=== PATIENT | male | born 1975 | race Caucasian/White ===

== ENCOUNTER 2019-09-18 15:44 | Emergency (ER) | payer SELFPAY ==
--- NOTE | 2019-09-18 16:45 | EDM.PDOC ---
ED HPI GENERAL MEDICAL PROBLEM - General Chief Complaint: Lower Extremity Injury/Pain Stated Complaint: MEDICAL CLEARANCE Time Seen by Provider: 09/18/19 16:21 Source of Information: Reports: Patient History Limitations: Reports: No Limitations - History of Present Illness INITIAL COMMENTS - FREE TEXT/NARRATIVE: HISTORY AND PHYSICAL: History of present illness: Patient is a 43-year-old male who presents to the emergency room with complaints of discoloration to his bilateral great toes. He has brought to the emergency room by law enforcement for medical clearance. 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 He states he does have good sensation although it is painful if he stops the area when walking. Denies any history of diabetes and denies any injury. States he is otherwise healthy and has no health concerns. Patient denies any fever, chills, headache, change in vision, syncope or near syncope. Denies any chest pain, back pain, shortness of breath or cough. Denies any GI or symptoms. Patient has been eating and drinking appropriately. Patient is Sami-speaking and [employer] translation services was used. Review of systems: As per history of present illness and below otherwise all systems reviewed and negative. Past medical history: As per history of present illness and as reviewed below otherwise noncontributory. Surgical history: As per history of present illness and as reviewed below otherwise noncontributory. Social history: See social history for further information Family history: As per history of present illness and as reviewed below otherwise noncontributory. Physical exam: General: Well-developed and well-nourished 43-year-old male. Alert and appropriate for age. Nontoxic-appearing and in no acute distress. HEENT: Atraumatic, normocephalic, pupils equal and reactive bilaterally, negative for conjunctival pallor or scleral icterus, mucous membranes moist, TMs normal bilaterally, throat clear, neck supple, nontender, trachea midline. No drooling or trismus noted. No meningeal signs. No hot potato voice noted. Lungs: Clear to auscultation, breath sounds equal bilaterally, chest nontender. Heart: S1S2, regular rate and rhythm without overt murmur Abdomen: Soft, nondistended, nontender. Skin: Discoloration noted to the solar surface of the great toe bilaterally. On the left great toe he does have some mild erythema to the inside of the webspace. Nonfluctuant and nonindurated. Remaining skin is intact, warm, dry. No lesions or rashes noted. Extremities: See skin for details, moves all extremities per self without difficulty or deficits, negative for cords or calf pain. + CMS bilaterally. Cap refill less than 3 seconds of toes bilaterally. Neurovascular unremarkable. Neuro: Awake, alert, oriented. Cranial nerves II through XII unremarkable. Cerebellum unremarkable. Motor and sensory unremarkable throughout. Exam nonfocal. Notes: [employer] was used to evaluated/speak with patient. We discussed the importance of following up with podiatry. Due to the small area of redness I will place him on a short course of antibiotic to rule out cellulitis. He states he is otherwise asymptomatic. He states if law enforcement had not brought him to the emergency room he would not had sought medical attention for his toes. Supportive care measures were reviewed and discussed. Voices understanding and is agreeable to plan of care. Denies any further questions or concerns at this time. 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 Please wash the areas twice daily with mild soap and water. Otherwise keep the skin clean and dry. Keep dry cotton socks on to avoid moisture. 2. Tylenol and/or ibuprofen as needed for pain. Tramadol for moderate to severe pain. 3. As we discussed please follow-up with podiatry. Return to the ED as needed and as discussed. Definitive disposition and diagnosis as appropriate pending reevaluation and review of above. bilateral feet Pain Score (Numeric/FACES): 10 - Related Data Allergies Allergy/AdvReac Type Severity Reaction Status Date / Time No Known Allergies Allergy Verified 09/18/19 15:51 Home Meds: Home Meds . [No Known Home Meds] 09/18/19 [History] Past Medical History - Past Health History Medical/Surgical History: Denies Medical/Surgical History Social & Family History - Family History Family Medical History: Noncontributory - Tobacco Use Smoking Status *Q: Current Every Day Smoker Years of Tobacco use: 2 Packs/Tins Daily: 0.2 - Recreational Drug Use Recreational Drug Use: No Review of Systems - Review of Systems Review Of Systems: Comprehensive ROS is negative, except as noted in HPI. ED EXAM, GENERAL - Physical Exam Exam: See Below (See dictation) Course - Vital Signs Last Recorded V/S: Last Vital Signs Temp 98.2 F 09/18/19 15:49 Pulse 90 09/18/19 15:49 Resp 20 09/18/19 15:49 BP 165/101 H 09/18/19 15:49 Pulse Ox 100 09/18/19 15:49 - Orders/Labs/Meds Orders: Active Orders 24 hr Category Date Time Status Blood Glucose Check, Bedside [RC] ONETIME Care 09/18/19 16:41 Active Departure - Departure Time of Disposition: 16:44 Disposition: Home, Self-Care 01 Clinical Impression: Encounter for medical screening examination, Frostbite of both great toes, Localized infection of skin - Discharge Information Referrals: PCP,Unobtain [Primary Care Provider] - Forms: ED Department Discharge Additional Instructions: The following information is given to patients seen in the emergency department who are being discharged to home. This information is to outline your options for follow-up care. We provide all patients seen in our emergency department with a follow-up referral. The need for follow-up, as well as the timing and circumstances, are variable depending upon the specifics of your emergency department visit. If you don't have a primary care physician on staff, we will provide you with a referral. We always advise you to contact your personal physician following an emergency department visit to inform them of the circumstance of the visit and for follow-up with them and/or the need for any referrals to a consulting specialist. The emergency department will also refer you to a specialist when appropriate. This referral assures that you have the opportunity for follow-up care with a specialist. All of these measure are taken in an effort to provide you with optimal care, which includes your follow-up. Under all circumstances we always encourage you to contact your private physician who remains a resource for coordinating your care. When calling for follow-up care, please make the office aware that this follow-up is from your recent emergency room visit. If for any reason you are refused follow-up, please contact the [facility] Emergency Department at and asked to speak to the emergency department charge nurse. [facility] [address] [place] [address] [facility] [address] [place] [id number] 1. We wash the areas twice daily with mild soap and water. Otherwise keep the skin clean and dry. Keep dry cotton socks on to avoid moisture. 2. Tylenol and/or ibuprofen as needed for pain. Tramadol for moderate to severe pain. 3. As we discussed please follow-up with podiatry. Return to the ED as needed and as discussed. Sepsis Event Note - Evaluation Sepsis Screening Result: No Definite Risk - Focused Exam Vital Signs: Vital Signs Temp Pulse Resp BP Pulse Ox 09/18/19 15:49 98.2 F 90 20 165/101 H 100 Date Exam was Performed: 09/18/19 Time Exam was Performed: 16:49 - My Orders Last 24 Hours: My Active Orders 09/18/19 16:41 Blood Glucose Check, Bedside [RC] ONETIME - Assessment/Plan Last 24 Hours: My Active Orders 09/18/19 16:41 Blood Glucose Check, Bedside [RC] ONETIME
== END 2019-09-18 16:57 ==
LOC: MW.ED 15:44
DX: T33.832A Superficial frostbite of left toe(s), initial encounter (principal); T33.831A Superficial frostbite of right toe(s), initial encounter; L08.9 Local infection of the skin and subcutaneous tissue, unspecified; F17.210 Nicotine dependence, cigarettes, uncomplicated; X31.XXXA Exposure to excessive natural cold, initial encounter
CPT/HCPCS: 99283

== ENCOUNTER 2022-07-10 19:30 | Emergency (ER) | payer SELFPAY ==
[2022-07-10] MEDS ORDERED: Sodium Chloride 0.9% 10 ML Syringe FLUSH PRN (19:32)
[2022-07-10] MEDS ORDERED: Piperacillin/Tazobactam 4.5 GM in Sodium Chloride 0.9% 100 ML IV ONE (19:32)
[2022-07-10] MEDS ORDERED: Sodium Chloride 0.9% 2.5 ML Syringe FLUSH PRN (19:32)
[2022-07-10] MEDS ORDERED: 50% Dextrose in Water 50 ML Syringe IVPUSH ONE (19:36)
[2022-07-10] MEDS ORDERED: fentaNYL 50 MCG/ML SDV IVPUSH ONE ×2 (19:36→20:50)
[2022-07-10] MEDS ORDERED: Dextrose 10% in Water 500 ML IV SCH (19:45)
[2022-07-10] MEDS ORDERED: propofoL 100 ML IV SCH ×2 (19:45→20:00)
[2022-07-10 20:29] LABS: BLOOD UREA NITROGEN,BUN 16 mg/dL (7.0-18.0); CARBON DIOXIDE,CO2 24.8 mmol/L (21.0-32.0); CHLORIDE,CL 103 mmol/L (98-107); GLUCOSE RANDOM 204 mg/dL (74-106); LIPASE 132 U/L (73-393); POTASSIUM,K 3.6 mmol/L (3.5-5.1); SODIUM,NA 140 mmol/L (136-148)
[2022-07-10 20:31] LABS: ESTIMATED GFR 62 mL/min (>60)
[2022-07-10] MEDS ORDERED: fentaNYL 100 MCG/2 ML SDV ONE (20:52)
[2022-07-10] MEDS ORDERED: levETIRAcetam 2,000 MG in Sodium Chloride 0.9% 100 ML IV SCH (21:00)
[2022-07-10] MEDS ORDERED: Sodium Chloride 0.9% 1,000 ML IV ONE (21:16)
[2022-07-10] MEDS ORDERED: fentaNYL 100 MCG/2 ML SDV IVPUSH ONE (21:44)
[2022-07-10 22:19] LABS: CORONAVIRUS COVID-19 NAA NEGATIVE (NEGATIVE); INFLUENZA A NAA NEGATIVE (NEGATIVE); INFLUENZA B NAA NEGATIVE (NEGATIVE); RESPIRATORY SYNCYTIAL VIR NAA NEGATIVE (NEGATIVE)
== END 2022-07-10 22:58 ==
LOC: EDBD 19:30 → MW.ED 19:30
DX: J18.9 Pneumonia, unspecified organism (principal); J96.90 Respiratory failure, unspecified, unspecified whether with hypoxia or hypercapnia; N17.9 Acute kidney failure, unspecified; F15.10 Other stimulant abuse, uncomplicated; R56.9 Unspecified convulsions; E16.2 Hypoglycemia, unspecified; M62.82 Rhabdomyolysis; R00.0 Tachycardia, unspecified; Z20.822 Contact with and (suspected) exposure to COVID-19
CPT/HCPCS: 0241U; 36415; 70450; 71045; 72125; 80053; 80305; 80307; 81001; 82550; 82947; 83605; 83690; 83735; 83880; 84443; 84484; 85025; 85610; 87040; 87154; 93005; 96361; 96365; 96375; 96376; 99285; J1953; J2543; J2704; J3010; J3490; J7030